=== PATIENT | male | born 1980 | race Caucasian/White ===

== ENCOUNTER 2017-01-13 18:52 | Emergency (ER) | payer OTHER ==
[~2017-01-13 18:52] MED LIST: FLEXERIL10 MG PO; MOBIC PO; NO MEDICATIONS
[2017-01-13] MEDS ORDERED: NEURONTIN (19:28)
[2017-01-13] MEDS ORDERED: B/P MED (19:28)
[2017-01-13] MEDS ORDERED: DIAZEPAM (19:28)
[2017-01-13] MEDS ORDERED: PERCOCET (19:29)
[2017-01-13] MEDS ORDERED: CREAMS (19:29)
[2017-01-13] MEDS ORDERED: MED FOR HERPES (19:30)
== END 2017-01-13 20:58 | disposition left against medical advice (07) ==
LOC: CED 18:52
DX: Z53.21 Procedure and treatment not carried out due to patient leaving prior to being seen by health care provider (principal)